=== PATIENT | female | born 1955 | race Caucasian/White ===

== ENCOUNTER 2017-11-08 20:30 | Inpatient (IN) | END 2017-11-13 15:59 | disposition home or self-care (01) | DRG 687 ==

== ENCOUNTER 2018-01-24 06:06 | Day surgery (SDC) | END 2018-01-24 08:54 | disposition home or self-care (01) ==

== ENCOUNTER 2018-02-22 16:21 | Emergency (ER) | END 2018-02-22 23:25 | disposition home or self-care (01) ==

== ENCOUNTER 2018-03-22 00:15 | Emergency (ER) | payer OTHER ==
[~2018-03-22] VITALS: Ht 165.1 cm; Wt 94.8 kg
[~2018-03-22 00:15] MED LIST: AMLO-147 PO; CARV6.2579 PO; CLON-230 PO; DILT240C79; DOCU-144 PO; GLIP10TA3; HYDR25TA6; INSU100C5 SQ; LEVO750T8 PO; LOSA100T3; METF-849; NAPR-985 PO; OMEP20CA16 PO; POLY17PO6 PO; PRAV80TA
[2018-03-22 00:21] VITALS: Ht 165.1 cm; Wt 94.8 kg
[2018-03-22] MEDS ORDERED: morphine 4 MG/ML VIAL IV STA ×2 (01:49→04:18)
[2018-03-22] MEDS ORDERED: ONDANSETRON 4 MG INJ IV STA ×2 (01:49→04:18)
[2018-03-22] MEDS ORDERED: SOD CHLORIDE 0.9% 500 ML IV STA (01:49)
[2018-03-22] MEDS ORDERED: CIPR500T4 PO (04:06)
[2018-03-22] MEDS ORDERED: TRAM50TA2 PO (04:06)
[2018-03-22 04:30] VITALS: BP 178/86; PULSE 87; RESP 17
[2018-03-25] MEDS ORDERED: LINA5TAB PO (10:29)
[2018-03-25] MEDS ORDERED: HYDR-3601 PO (10:29)
[2018-03-25] MEDS ORDERED: Insulin Glargine SC (10:29)
[2018-03-25] MEDS ORDERED: MORP15TA3 PO (10:29)
[2018-03-25] MEDS ORDERED: POLY17PO6 PO (10:29)
[2018-03-25] MEDS ORDERED: NOVO3I SC (10:29)
[2018-03-25] MEDS ORDERED: LANT3I SC (10:30)
[2018-03-25] MEDS ORDERED: AMOX1TAB10 PO (12:17)
--- NOTE | 2018-04-14 00:05 | ERD ---
ER Documentation Chief Complaint Chief Complaint abdominal pain since yesterday HPI 62-year female with abdominal pain and hematuria since yesterday. Patient has history of kidney cancer. Pain is mild to moderate intensity with no exacerbating relieving factors. Denies any fevers or chills. Denies any other current issues. ROS All systems reviewed and are negative except as per history of present illness. Medications Home Meds Active Scripts Amoxicillin/Potassium Clav (Amox-Clav 875-125 mg Tablet) 875-125 mg Tab, 1 TAB PO BID, #20 TAB Prov:LÁZARO SEGALBalaji 03/25/18 Insulin Glargine* (Lantus*) 100 Unit/Ml Soln, 29 UNIT SC QHS, #9 VIAL 2 Refills Prov:LÁZARO SEGAL 03/25/18 Linagliptin (TRADJENTA) 5 Mg Tablet, 5 MG PO DAILY, #30 TAB Prov:LÁZARO SEGAL 03/25/18 [Insulin Glargine] 100 UNITS/ML SOLN No Conflict Check, 29 UNITS SC DAILY@1999, #9 VIAL 2 Refills Prov:LÁZARO SEGAL 03/25/18 Insulin Aspart* (Novolog Insulin Pen*) 100 Unit/Ml Soln, 10 UNIT SC WITH MEALS, #9 VIAL 2 Refills Prov:LÁZARO SEGAL Balaji 03/25/18 Morphine Sulfate (Morphine Sulfate ER) 15 Mg Tablet.er, 15 MG PO BID, #60 TAB Prov:LÁZARO SEGAL Balaji 03/25/18 Hydrocodone Bit-Acetaminophen (Hydrocodone Bit-APAP) 5-325MG Tablet, 1 TAB PO Q6H PRN for MODERATE PAIN LEVEL 4-6, #30 TAB Prov:LÁZARO SEGAL Balaji 03/25/18 Polyethylene Glycol* (Miralax*) 17 Gm Powd.pack, 17 GM PO DAILY, #30 PACKET Prov:LÁZARO SEGAL Balaji 03/25/18 Docusate Sodium* (Colace*) 100 Mg Capsule, 100 MG PO TID, #30 CAP Prov:KIMANI FLORES MD 02/22/18 Reported Medications Carvedilol* (Carvedilol*) 6.25 Mg Tablet, 6.25 MG PO BID 05/08/11 Amlodipine Besylate* (Amlodipine Besylate*) 10 Mg Tablet, 10 MG PO DAILY 05/08/11 Omeprazole* (Omeprazole*) 20 Mg Capsule.dr, 20 MG PO DAILY 05/08/11 Clonidine Hcl (Clonidine Hcl) 0.1 Mg Tablet, 0.1 MG PO BID 05/08/11 Pravastatin Sodium* (Pravachol*) 80 Mg Tablet, DAILY 07/11/10 Allergies Allergies: Coded Allergies: No Known Allergies (Unverified Allergy, Mild, 02/22/18) PMhx/Soc History of Surgery: Yes (ovaries, thyroid) Anesthesia Reaction: No Hx Neurological Disorder: No Hx Respiratory Disorders: No Hx Cardiac Disorders: Yes (HTN) Hx Psychiatric Problems: No Hx Miscellaneous Medical Probl: No (DM, Kidney CA) Hx Alcohol Use: No Hx Substance Use: No Hx Tobacco Use: No Smoking Status: Never smoker Physical Exam Physical Exam Const: No acute distress Head: Atraumatic Eyes: Normal Conjunctiva ENT: Normal External Ears, Nose and Mouth. Neck: Full range of motion. No meningismus. Resp: Clear to auscultation bilaterally Cardio: Regular rate and rhythm, no murmurs Abd: Soft, non tender, non distended. Normal bowel sounds Skin: No petechiae or rashes Back: No midline or flank tenderness Ext: No cyanosis, or edema Neur: Awake and alert Psych: Normal Mood and Affect Results 24 hrs Laboratory Tests Test 03/22/18 02:15 03/22/18 02:22 Urine Color RED Urine Clarity CLOUDY Urine pH 6.0 Urine Specific [place] 1.020 Urine Ketones TRACE mg/dL Urine Nitrite NEGATIVE mg/dL Urine Bilirubin NEGATIVE mg/dL Urine Urobilinogen NEGATIVE mg/dL Urine Leukocyte Esterase NEGATIVE Lalitha/ul Urine Microscopic RBC > 182 /HPF Urine Microscopic WBC 7 /HPF Urine Squamous Epithelial Cells FEW /HPF Urine Bacteria FEW /HPF Urine Hemoglobin 2+ mg/dL Urine Glucose 1+ mg/dL Urine Total Protein 3+ mg/dl White Blood Count 12.2 10^3/ul Red Blood Count 4.32 10^6/ul Hemoglobin 12.6 g/dl Hematocrit 39.2 % Mean Corpuscular Volume 90.7 fl Mean Corpuscular Hemoglobin 29.2 pg Mean Corpuscular Hemoglobin Concent 32.1 g/dl Red Cell Distribution Width 13.4 % Platelet Count 357 10^3/UL Mean Platelet Volume 11.3 fl Immature Granulocytes % 0.500 % Neutrophils % 73.1 % Lymphocytes % 18.8 % Monocytes % 5.4 % Eosinophils % 1.7 % Basophils % 0.5 % Nucleated Red Blood Cells % 0.0 /100WBC Immature Granulocytes # 0.060 10^3/ul Neutrophils # 8.9 10^3/ul Lymphocytes # 2.3 10^3/ul Monocytes # 0.7 10^3/ul Eosinophils # 0.2 10^3/ul Basophils # 0.1 10^3/ul Nucleated Red Blood Cells # 0.0 10^3/ul Sodium Level 140 mmol/L Potassium Level 3.8 mmol/L Chloride Level 100 mmol/L Carbon Dioxide Level 31 mmol/L Anion Gap 9 Blood Urea Nitrogen 40 mg/dl Creatinine 1.64 mg/dl Est Glomerular Filtrat Rate mL/min 32 mL/min Glucose Level 226 mg/dl Calcium Level 9.2 mg/dl Total Bilirubin 0.3 mg/dl Direct Bilirubin 0.00 mg/dl Indirect Bilirubin 0.3 mg/dl Aspartate Amino Transf (AST/SGOT) 16 IU/L Alanine Aminotransferase (ALT/SGPT) 25 IU/L Alkaline Phosphatase 98 IU/L Total Protein 7.1 g/dl Albumin 3.8 g/dl Globulin 3.30 g/dl Albumin/Globulin Ratio 1.15 Lipase 150 U/L Serum HCG, Qualitative NEGATIVE Current Medications Medications Dose Sig/Yelena Start Time Status Last (Trade) Ordered Route PRN Stop Time Admin Dose Reason Admin Sodium 500 ml @ Q1H STAT 03/22/18 DC 03/22/18 Chloride 500 mls/hr IV 01:49 02:31 03/22/18 02:48 Morphine 4 mg ONCE STAT 03/22/18 DC 03/22/18 Sulfate IV 01:49 02:31 (morphine) 03/22/18 01:50 Ondansetron 4 mg ONCE STAT 03/22/18 DC 03/22/18 HCl (Zofran IV 01:49 02:31 Inj) 03/22/18 01:50 Morphine 4 mg ONCE STAT 03/22/18 DC 03/22/18 Sulfate IV 04:18 04:26 (morphine) 03/22/18 04:19 Ondansetron 4 mg ONCE STAT 03/22/18 DC 03/22/18 HCl (Zofran IV 04:18 04:26 Inj) 03/22/18 04:19 Procedures/MDM Medical decision making: Patient comes in with hematuria and abdominal pain. Pain is resolved and she has been treated. She has evidence of UTI given Rocephin here and discharged home on antibiotics and advised to follow-up in 8 hours for serial abdominal exams and otherwise follow-up with PCP. Departure Diagnosis: Primary Impression: Hematuria Hematuria type: unspecified type Qualified Codes: R31.9 - Hematuria, unspecified Condition: Stable Patient Instructions: Hematuria: Possible Causes, Hematuria ELONOR FELTON Apr 14, 2018 00:05
== END 2018-03-22 05:00 | disposition home or self-care (01) ==
LOC: E/R 00:15
DX: R31.9 Hematuria, unspecified (principal); I10 Essential (primary) hypertension; E11.9 Type 2 diabetes mellitus without complications; Z79.4 Long term (current) use of insulin; Z85.528 Personal history of other malignant neoplasm of kidney
CPT/HCPCS: 71045; 74176; 80053; 81001; 83690; 84703; 85025; 87086; J2270; J2405; J7040; 36415; 96361; 96374; 96375; 96376

== ENCOUNTER 2018-03-23 06:42 | Inpatient (IN) | END 2018-03-25 13:45 | disposition home or self-care (01) | DRG 687 ==